=== PATIENT | female | born 1985 | race Caucasian/White ===

== ENCOUNTER 2018-10-17 08:15 | Emergency (ER) | payer OTHER ==
[~2018-10-17] VITALS: Ht 167.6 cm; Wt 59.9 kg
[~2018-10-17 08:15] MED LIST: HYDROCODON-ACE1 EAC7 PO; KEFLEX500 MG PO; NOHOMEMEDICATIONS; NORCO 5-325 TA1 EACH PO; PROZAC 10 MG CA10 M1 PO; TRAMADOL 50 MG50 MG PO; TRAZODONE 50 MG50 M1 OR; ZOFRAN ODT4 MG PO; ZOFRAN4 MG PO
[2018-10-17] MEDS ORDERED: NEURONTIN 300300 M1 PO (08:27)
[2018-10-17] MEDS ORDERED: CYCLOBENZAPRINE5 MG PO (08:27)
[2018-10-17] MEDS ORDERED: IBUPROFEN 800800 M1 PO (09:27)
[2018-10-17 09:35] VITALS: BP 125/82
== END 2018-10-17 09:36 | disposition home or self-care (01) ==
LOC: M.ERS 08:15
DX: S90.111A Contusion of right great toe without damage to nail, initial encounter (principal); K58.9 Irritable bowel syndrome, unspecified; M79.7 Fibromyalgia; Z88.2 Allergy status to sulfonamides; W22.8XXA Striking against or struck by other objects, initial encounter; Y92.89 Other specified places as the place of occurrence of the external cause; Y93.89 Activity, other specified; Y99.8 Other external cause status

== ENCOUNTER → 2020-12-21 | Outpatient (CLI) | payer OTHER ==
[~2020-12-21] MED LIST changes: +CYCLOBENZAPRINE5 MG PO; +IBUPROFEN 800800 M1 PO; +NEURONTIN 300300 M1 PO
[2020-12-21 09:24] LABS: ABSOLUTE EOSINOPHILS 0.3 thou/uL (0.0-0.7); ABSOLUTE LYMPHOCYTES 1.5 thou/uL (0.8-5.3); ABSOLUTE MONOCYTES 0.4 thou/uL (0.0-1.2); BASOPHILS 0.5 %; EOSINOPHILS 4.3 %; HEMATOCRIT 44.4 % (37.0-47.0); HEMOGLOBIN 15.3 gm/dL (12.0-15.0); LYMPHOCYTES 24.4 %; MCH 31.2 pg (26.0-34.0); MCHC 34.4 g/dL (28.0-37.0); MCV 90.9 fL (80.0-100.0); MONOCYTES 6.8 %; MPV 8.2 fl. (7.2-11.1); NUCLEATED RBCS 0 /100WBC; PLATELET COUNT* 275 thou/uL (150-400); RBC 4.89 mil/uL (4.20-5.00); RDW-CV 13.8 % (10.5-14.5); WBC 6.2 thou/uL (4.0-11.0)
[2020-12-21 09:37] LABS: ALBUMIN 4.3 g/dL (3.4-5.0); CALCIUM 8.6 mg/dL (8.5-10.1); CREATININE 0.8 mg/dL (0.6-1.3); POTASSIUM 3.4 mmol/L (3.5-5.1); TOTAL PROTEIN 7.5 g/dL (6.4-8.2)
[2020-12-21 17:06] LABS: PROLACTIN 20.2 ng/mL (4.8-23.3)
[2020-12-22 19:07] LABS: INSULIN 6.6 uIU/mL (2.6-24.9)
== END ==
LOC: M.LAB 08:55
PROVIDERS: ATTEND Family Medicine
DX: R61 Generalized hyperhidrosis (principal)